=== PATIENT | female | born 1960 | race African-American/Black ===

== ENCOUNTER 2023-10-18 18:41 | Inpatient (IN) | payer OTHER ==
[2023-10-18 20:55] VITALS: BMI 29.2
[2023-10-19] MEDS ORDERED: IBUPROFEN 600 MG TABLET (FP) PO PRN ×2 (08:30→09:16)
[2023-10-19] MEDS ORDERED: NALOXONE HCL (KLOXXADO) 8 MG SPRAY NS PRN ×2 (08:30→09:16)
[2023-10-19] MEDS ORDERED: MAGNESIUM HYDROX 2400MG/30ML ORAL SUSPENSION 30 ML CUP PO PRN ×2 (08:30→09:16)
[2023-10-19] MEDS ORDERED: guaiFENesin 600 MG TABLET.ER (FP) PO PRN ×2 (08:30→09:16)
[2023-10-19] MEDS ORDERED: diazePAM 5 MG TABLET PO PRN ×2 (08:30→09:16)
[2023-10-19] MEDS ORDERED: IBUPROFEN 400 MG TABLET (FP) PO PRN ×2 (08:30→09:16)
[2023-10-19] MEDS ORDERED: DICYCLOMINE HCL 10 MG CAPSULE PO PRN ×2 (08:30→09:16)
[2023-10-19] MEDS ORDERED: BENZOCAINE/MENTHOL (CHLORASEPTIC ) LOZENGE MM PRN ×2 (08:30→09:16)
[2023-10-19] MEDS ORDERED: POLYETHYLENE GLYCOL (HEALTHYLAX) 3350 17 GM PACKET PO PRN ×2 (08:30→09:16)
[2023-10-19] MEDS ORDERED: BISMUTH SUBSALICYLATE 262 MG/15 ML BTL PO PRN ×2 (08:30→09:16)
[2023-10-19] MEDS ORDERED: BENZONATATE 200 MG CAPSULE PO PRN ×2 (08:30→09:16)
[2023-10-19] MEDS ORDERED: hydrOXYzine PAMOATE 25 MG CAPSULE (FP) PO PRN ×2 (08:30→09:16)
[2023-10-19] MEDS ORDERED: ACETAMINOPHEN 325 MG TABLET (FP) PO PRN ×2 (08:30→09:16)
[2023-10-19] MEDS ORDERED: METHOCARBAMOL 500 MG TABLET PO PRN ×2 (08:30→09:16)
[2023-10-19] MEDS ORDERED: MAG HYDROX/AL HYDROX/SIMETH 30 ML UNIT-DOSE CUP PO PRN ×2 (08:30→09:16)
[2023-10-19] MEDS ORDERED: NALOXONE HCL 0.4 MG/ML VIAL IM PRN ×2 (08:30→09:16)
[2023-10-19] MEDS ORDERED: LOPERAMIDE HCL 2 MG CAPSULE PO PRN ×2 (08:30→09:16)
[2023-10-19] MEDS ORDERED: ONDANSETRON *ODT* 4 MG TABLET SL PRN ×2 (08:30→09:16)
[2023-10-19] MEDS ORDERED: PRENATAL VITAMINS W/ FOLIC ACID TABLET (FP) PO SCH (10:00)
[2023-10-19] MEDS ORDERED: diazePAM 5 MG TABLET PO SCH (11:00)
[2023-10-19] MEDS: amLODIPine BESYLATE 2.5 MG TABLET (FP) PO SCH (11:29)
[2023-10-19] MEDS: PRENATAL VITAMINS W/ FOLIC ACID TABLET (FP) PO SCH (11:29)
[2023-10-19] MEDS: LOSARTAN POTASSIUM 25 MG TABLET PO SCH (11:30)
[2023-10-19] MEDS: diazePAM 5 MG TABLET PO SCH ×3 (11:31→22:18)
[2023-10-19 13:30] LABS: HEMATOCRIT 39.2 % (32.4-45.2); HEMOGLOBIN 12.7 GM/dL (10.7-15.3); MCH 28.5 pg (25.7-33.7); MCHC 32.4 g/dl (32.0-36.0); MEAN CELL VOLUME 88.1 fl (80-96); MEAN PLT VOLUME 9.3 fl (7.5-11.1); PLATELET COUNT 217 10^3/uL (134-434); RBC 4.45 M/mm3 (3.60-5.2); RDW 15.5 % (11.6-15.6); WHITE BLOOD COUNT 6.4 K/mm3 (4.0-10.0)
[2023-10-19 13:40] LABS: POTASSIUM 3.2 mmol/L (3.5-5.1)
[2023-10-19 13:46] LABS: ALBUMIN 3.9 g/dl (3.4-5.0); BLOOD UREA NITROGEN 20.9 mg/dL (7-18); CALCIUM 9.9 mg/dL (8.5-10.1)
[2023-10-19 13:50] LABS: CREATININE 1.6 mg/dL (0.55-1.3)
[2023-10-19 13:51] LABS: BILIRUBIN,TOTAL 0.3 mg/dL (0.2-1); TOT PROT 7.9 g/dl (6.4-8.2)
[2023-10-19] MEDS ORDERED: THIAMINE HCL 100 MG TABLET (FP) PO SCH (22:00)
[2023-10-19] MEDS ORDERED: MELATONIN 5 MG TABLETS PO SCH (22:00)
[2023-10-19] MEDS: MELATONIN 5 MG TABLETS PO SCH (22:18)
[2023-10-19] MEDS: COLLOIDAL OATMEAL 1 BAR EACH TP PRN (22:18)
[2023-10-19] MEDS: THIAMINE HCL 100 MG TABLET (FP) PO SCH (22:18)
[2023-10-20] MEDS: diazePAM 5 MG TABLET PO SCH ×4 (05:46→22:13)
[2023-10-20] MEDS: PRENATAL VITAMINS W/ FOLIC ACID TABLET (FP) PO SCH (10:10)
[2023-10-20] MEDS: amLODIPine BESYLATE 2.5 MG TABLET (FP) PO SCH (10:10)
[2023-10-20] MEDS: LOSARTAN POTASSIUM 25 MG TABLET PO SCH (10:10)
[2023-10-20] MEDS: THIAMINE HCL 100 MG TABLET (FP) PO SCH (22:13)
[2023-10-20] MEDS: MELATONIN 5 MG TABLETS PO SCH (22:14)
[2023-10-21] MEDS: diazePAM 5 MG TABLET PO SCH ×3 (05:50→22:20)
[2023-10-21] MEDS ORDERED: diazePAM 5 MG TABLET PO SCH (06:00)
[2023-10-21] MEDS: PRENATAL VITAMINS W/ FOLIC ACID TABLET (FP) PO SCH (10:33)
[2023-10-21] MEDS: LOSARTAN POTASSIUM 50 MG TABLET PO SCH (10:33)
[2023-10-21] MEDS: amLODIPine BESYLATE 2.5 MG TABLET (FP) PO SCH (10:38)
[2023-10-21 11:34] LABS: BLOOD UREA NITROGEN 15.8 mg/dL (7-18)
[2023-10-21 11:37] LABS: CREATININE 0.8 mg/dL (0.55-1.3)
[2023-10-21] MEDS: MELATONIN 5 MG TABLETS PO SCH (22:19)
[2023-10-21] MEDS: POTASSIUM CHLORIDE ORAL LIQUID 20 MEQ/15 ML PO SCH (22:19)
[2023-10-21] MEDS: THIAMINE HCL 100 MG TABLET (FP) PO SCH (22:20)
[2023-10-22] MEDS: diazePAM 5 MG TABLET PO SCH ×2 (05:51→17:42)
[2023-10-22] MEDS ORDERED: diazePAM 5 MG TABLET PO SCH (06:00)
[2023-10-22] MEDS: LOSARTAN POTASSIUM 50 MG TABLET PO SCH (09:34)
[2023-10-22] MEDS: PRENATAL VITAMINS W/ FOLIC ACID TABLET (FP) PO SCH (09:38)
[2023-10-22] MEDS: POTASSIUM CHLORIDE ORAL LIQUID 20 MEQ/15 ML PO SCH (09:38)
[2023-10-22] MEDS: amLODIPine BESYLATE 2.5 MG TABLET (FP) PO SCH (09:38)
[2023-10-22] MEDS ORDERED: MIRTAZAPINE 15 MG TABLET (FP) PO SCH (22:00)
[2023-10-22] MEDS: THIAMINE HCL 100 MG TABLET (FP) PO SCH (22:25)
[2023-10-22] MEDS: MELATONIN 5 MG TABLETS PO SCH (22:58)
[2023-10-22] MEDS: COLLOIDAL OATMEAL 1 BAR EACH TP PRN (23:11)
[2023-10-23] MEDS ORDERED: diazePAM 5 MG TABLET PO ONE ×2 (06:00)
[2023-10-23 07:00] VITALS: PULSE 85
[2023-10-23] MEDS: LOSARTAN POTASSIUM 50 MG TABLET PO SCH (09:19)
[2023-10-23] MEDS: amLODIPine BESYLATE 2.5 MG TABLET (FP) PO SCH (09:20)
[2023-10-23] MEDS: PRENATAL VITAMINS W/ FOLIC ACID TABLET (FP) PO SCH (09:20)
[2023-10-23 09:33] VITALS: BP 138/89; RESP 18; TEMP 97.3
[2023-10-23 12:45] LABS: POTASSIUM 4.2 mmol/L (3.5-5.1)
[2023-10-23 12:46] LABS: CALCIUM 9.5 mg/dL (8.5-10.1)
[2023-10-23 12:47] LABS: BLOOD UREA NITROGEN 17.6 mg/dL (7-18)
[2023-10-23 12:50] LABS: CREATININE 0.8 mg/dL (0.55-1.3)
== END 2023-10-23 09:50 | disposition home or self-care (01) | DRG 897 ==
LOC: YASAS 18:41 → Y3N 10-19 09:41
PROVIDERS: ADMIT Allergy & Immunology; ATTEND Surgery
PROC: HZ2ZZZZ Detoxification Services for Substance Abuse Treatment (ICD-10-PCS; principal; 2023-10-19)
DX: F10.230 Alcohol dependence with withdrawal, uncomplicated (principal); F17.210 Nicotine dependence, cigarettes, uncomplicated; F19.24 Other psychoactive substance dependence with psychoactive substance-induced mood disorder; F41.9 Anxiety disorder, unspecified; E87.6 Hypokalemia; I10 Essential (primary) hypertension; Z86.79 Personal history of other diseases of the circulatory system; Z28.310 Unvaccinated for COVID-19; Z28.9 Immunization not carried out for unspecified reason; Z88.0 Allergy status to penicillin
CPT/HCPCS: 36415; 80048; 80053; 80307; 82565; 84520; 85027; 86780; 87635; 87811

== ENCOUNTER 2023-11-06 21:38 | Inpatient (IN) | payer OTHER ==
[2023-11-06 22:05] VITALS: BMI 28.5
[2023-11-06] MEDS ORDERED: chlordiazePOXIDE HCL 25 MG CAPSULE PO PRN (22:42)
[2023-11-06] MEDS ORDERED: IBUPROFEN 600 MG TABLET (FP) PO PRN (22:50)
[2023-11-06] MEDS ORDERED: P-EPHED 60MG/TRIPROLIDI 2.5MG TABLET PO PRN (22:50)
[2023-11-06] MEDS ORDERED: LOPERAMIDE HCL 2 MG CAPSULE PO PRN (22:50)
[2023-11-06] MEDS ORDERED: guaiFENesin 600 MG TABLET.ER (FP) PO PRN (22:50)
[2023-11-06] MEDS ORDERED: MAGNESIUM HYDROX 2400MG/30ML ORAL SUSPENSION 30 ML CUP PO PRN (22:50)
[2023-11-06] MEDS ORDERED: BISMUTH SUBSALICYLATE 524 MG/30 ML PO PRN (22:50)
[2023-11-06] MEDS ORDERED: IBUPROFEN 400 MG TABLET (FP) PO PRN (22:50)
[2023-11-06] MEDS ORDERED: POLYETHYLENE GLYCOL (HEALTHYLAX) 3350 17 GM PACKET PO PRN (22:50)
[2023-11-06] MEDS ORDERED: ACETAMINOPHEN 325 MG TABLET (FP) PO PRN (22:50)
[2023-11-06] MEDS ORDERED: ONDANSETRON *ODT* 4 MG TABLET SL PRN (22:50)
[2023-11-06] MEDS ORDERED: MAG HYDROX/AL HYDROX/SIMETH 30 ML UNIT-DOSE CUP PO PRN (22:50)
[2023-11-06] MEDS ORDERED: BENZONATATE 200 MG CAPSULE PO PRN (22:50)
[2023-11-06] MEDS ORDERED: BENZOCAINE/MENTHOL (CHLORASEPTIC ) LOZENGE MM PRN (22:50)
[2023-11-06] MEDS ORDERED: METOPROLOL TARTRATE 25 MG TABLET (FP) PO ONE (22:54)
[2023-11-06] MEDS: chlordiazePOXIDE HCL 25 MG CAPSULE PO SCH (23:26)
[2023-11-07] MEDS: chlordiazePOXIDE HCL 25 MG CAPSULE PO SCH ×4 (05:55→22:05)
[2023-11-07] MEDS: LOSARTAN POTASSIUM 50 MG TABLET PO SCH (10:12)
[2023-11-07] MEDS: amLODIPine BESYLATE 2.5 MG TABLET (FP) PO SCH (10:13)
[2023-11-07] MEDS: PRENATAL VITAMINS W/ FOLIC ACID TABLET (FP) PO SCH (10:13)
[2023-11-07] MEDS: BRIMONIDINE TARTRATE 0.2% OPHTHALMIC 5 ML BOTTLE OU SCH (12:22)
[2023-11-07] MEDS: MIRTAZAPINE 15 MG TABLET (FP) PO SCH (22:05)
[2023-11-07] MEDS: THIAMINE HCL 100 MG TABLET (FP) PO SCH (22:05)
[2023-11-07] MEDS: MELATONIN 5 MG TABLETS PO SCH (22:05)
[2023-11-08] MEDS: chlordiazePOXIDE HCL 25 MG CAPSULE PO SCH ×4 (05:29→22:08)
[2023-11-08] MEDS: amLODIPine BESYLATE 2.5 MG TABLET (FP) PO SCH (10:13)
[2023-11-08] MEDS: LOSARTAN POTASSIUM 50 MG TABLET PO SCH (10:14)
[2023-11-08] MEDS: PRENATAL VITAMINS W/ FOLIC ACID TABLET (FP) PO SCH (10:14)
[2023-11-08] MEDS: BRIMONIDINE TARTRATE 0.2% OPHTHALMIC 5 ML BOTTLE OU SCH (10:14)
[2023-11-08] MEDS: MELATONIN 5 MG TABLETS PO SCH (22:08)
[2023-11-08] MEDS: THIAMINE HCL 100 MG TABLET (FP) PO SCH (22:08)
[2023-11-08] MEDS: MIRTAZAPINE 15 MG TABLET (FP) PO SCH (22:08)
[2023-11-09] MEDS ORDERED: chlordiazePOXIDE HCL 10 MG CAPSULE PO PRN
[2023-11-09] MEDS: chlordiazePOXIDE HCL 10 MG CAPSULE PO SCH ×4 (05:19→22:09)
[2023-11-09] MEDS: LOSARTAN POTASSIUM 50 MG TABLET PO SCH (10:12)
[2023-11-09] MEDS: amLODIPine BESYLATE 2.5 MG TABLET (FP) PO SCH (10:12)
[2023-11-09] MEDS: PRENATAL VITAMINS W/ FOLIC ACID TABLET (FP) PO SCH (10:12)
[2023-11-09] MEDS: BRIMONIDINE TARTRATE 0.2% OPHTHALMIC 5 ML BOTTLE OU SCH (10:15)
[2023-11-09 11:04] LABS: HEMATOCRIT 33.9 % (32.4-45.2); HEMOGLOBIN 10.8 GM/dL (10.7-15.3); MCH 29.3 pg (25.7-33.7); MCHC 31.9 g/dl (32.0-36.0); MEAN CELL VOLUME 91.7 fl (80-96); MEAN PLT VOLUME 8.7 fl (7.5-11.1); PLATELET COUNT 201 10^3/uL (134-434); WHITE BLOOD COUNT 5.5 K/mm3 (4.0-10.0)
[2023-11-09 11:29] LABS: CALCIUM 9.6 mg/dL (8.5-10.1)
[2023-11-09 11:30] LABS: ALBUMIN 2.9 g/dl (3.4-5.0); BLOOD UREA NITROGEN 15.1 mg/dL (7-18)
[2023-11-09 11:33] LABS: CREATININE 0.9 mg/dL (0.55-1.3)
[2023-11-09 11:34] LABS: BILIRUBIN,TOTAL 0.4 mg/dL (0.2-1)
[2023-11-09 11:35] LABS: TOT PROT 6.3 g/dl (6.4-8.2)
[2023-11-09] MEDS: THIAMINE HCL 100 MG TABLET (FP) PO SCH (22:08)
[2023-11-09] MEDS: MELATONIN 5 MG TABLETS PO SCH (22:09)
[2023-11-09] MEDS: MIRTAZAPINE 15 MG TABLET (FP) PO SCH (22:09)
[2023-11-10] MEDS: chlordiazePOXIDE HCL 10 MG CAPSULE PO SCH ×2 (05:46→16:58)
[2023-11-10] MEDS: amLODIPine BESYLATE 2.5 MG TABLET (FP) PO SCH (10:01)
[2023-11-10] MEDS: LOSARTAN POTASSIUM 50 MG TABLET PO SCH (10:01)
[2023-11-10] MEDS: BRIMONIDINE TARTRATE 0.2% OPHTHALMIC 5 ML BOTTLE OU SCH (10:01)
[2023-11-10] MEDS: PRENATAL VITAMINS W/ FOLIC ACID TABLET (FP) PO SCH (10:01)
[2023-11-10] MEDS: MELATONIN 5 MG TABLETS PO SCH (23:04)
[2023-11-10] MEDS: MIRTAZAPINE 15 MG TABLET (FP) PO SCH (23:04)
[2023-11-10] MEDS: THIAMINE HCL 100 MG TABLET (FP) PO SCH (23:04)
[2023-11-11] MEDS ORDERED: chlordiazePOXIDE HCL 10 MG CAPSULE PO ONE (05:00)
[2023-11-11 06:07] VITALS: PULSE 99
[2023-11-11 09:20] VITALS: BP 145/91; RESP 16; TEMP 97.6
[2023-11-11] MEDS: amLODIPine BESYLATE 2.5 MG TABLET (FP) PO SCH (09:28)
[2023-11-11] MEDS: PRENATAL VITAMINS W/ FOLIC ACID TABLET (FP) PO SCH (09:28)
[2023-11-11] MEDS: LOSARTAN POTASSIUM 50 MG TABLET PO SCH (09:28)
[2023-11-11] MEDS: BRIMONIDINE TARTRATE 0.2% OPHTHALMIC 5 ML BOTTLE OU SCH (09:31)
== END 2023-11-11 09:38 | disposition home or self-care (01) | DRG 897 ==
LOC: YASAS 21:38 → Y3N 11-07 01:50
PROVIDERS: ADMIT Allergy & Immunology; ATTEND Surgery
PROC: HZ2ZZZZ Detoxification Services for Substance Abuse Treatment (ICD-10-PCS; principal; 2023-11-07)
DX: F10.230 Alcohol dependence with withdrawal, uncomplicated (principal); F10.282 Alcohol dependence with alcohol-induced sleep disorder; F19.24 Other psychoactive substance dependence with psychoactive substance-induced mood disorder; I10 Essential (primary) hypertension; S62.606A Fracture of unspecified phalanx of right little finger, initial encounter for closed fracture; W19.XXXA Unspecified fall, initial encounter; Y93.89 Activity, other specified; Y92.89 Other specified places as the place of occurrence of the external cause; Y99.8 Other external cause status; Z88.0 Allergy status to penicillin
CPT/HCPCS: 36415; 73140-TC-RT-FY; 80053; 85027; 87635

== ENCOUNTER 2023-11-10 19:30 | Emergency (ER) | payer OTHER, BC ==
[2023-11-10 19:54] VITALS: BP 142/90; PULSE 90; RESP 18; TEMP 97.6; BMI 30.2
== END 2023-11-10 23:33 | disposition home or self-care (01) ==
LOC: JER 19:30 → JERFT 19:30
PROC: 2W3GX1Z Immobilization of Right Thumb using Splint (ICD-10-PCS; principal; 2023-11-10)
DX: S63.259A Unspecified dislocation of unspecified finger, initial encounter (principal); M79.641 Pain in right hand; M79.89 Other specified soft tissue disorders; W19.XXXA Unspecified fall, initial encounter; X50.9XXA Other and unspecified overexertion or strenuous movements or postures, initial encounter
CPT/HCPCS: 73130-TC-RT-FY; 99283-25

== ENCOUNTER 2024-05-30 16:34 | Inpatient (IN) | payer OTHER, BC ==
[2024-05-30 17:24] VITALS: BMI 31.6
[2024-05-30] MEDS ORDERED: BENZOCAINE/MENTHOL (CHLORASEPTIC ) LOZENGE MM PRN (19:56)
[2024-05-30] MEDS ORDERED: NALOXONE HCL 0.4 MG/ML VIAL IM PRN (19:56)
[2024-05-30] MEDS ORDERED: BENZONATATE 200 MG CAPSULE PO PRN (19:56)
[2024-05-30] MEDS ORDERED: DICYCLOMINE HCL 10 MG CAPSULE PO PRN (19:56)
[2024-05-30] MEDS ORDERED: IBUPROFEN 400 MG TABLET (FP) PO PRN (19:56)
[2024-05-30] MEDS ORDERED: LOPERAMIDE HCL 2 MG CAPSULE PO PRN (19:56)
[2024-05-30] MEDS ORDERED: POLYETHYLENE GLYCOL (HEALTHYLAX) 3350 17 GM PACKET PO PRN (19:56)
[2024-05-30] MEDS ORDERED: MAGNESIUM HYDROX 2400MG/30ML ORAL SUSPENSION 30 ML CUP PO PRN (19:56)
[2024-05-30] MEDS ORDERED: guaiFENesin 600 MG TABLET.ER (FP) PO PRN (19:56)
[2024-05-30] MEDS ORDERED: IBUPROFEN 600 MG TABLET (FP) PO PRN (19:56)
[2024-05-30] MEDS ORDERED: ONDANSETRON *ODT* 4 MG TABLET SL PRN (19:56)
[2024-05-30] MEDS ORDERED: MAG HYDROX/AL HYDROX/SIMETH 30 ML UNIT-DOSE CUP PO PRN (19:56)
[2024-05-30] MEDS ORDERED: BISMUTH SUBSALICYLATE 524 MG/30 ML PO PRN (19:56)
[2024-05-30] MEDS ORDERED: ACETAMINOPHEN 325 MG TABLET (FP) PO PRN (19:56)
[2024-05-30] MEDS ORDERED: NALOXONE (NARCAN) HCL 4 MG/0.1 ML SPRAY NS PRN (19:56)
[2024-05-30] MEDS: THIAMINE 100 MG TABLET PO SCH (22:23)
[2024-05-30] MEDS: MELATONIN 5 MG TABLETS PO SCH (22:23)
[2024-05-30] MEDS: diazePAM 5 MG TABLET PO SCH (22:24)
[2024-05-31] MEDS: PRENATAL VITAMINS W/ FOLIC ACID TABLET (FP) PO SCH (10:05)
[2024-05-31] MEDS: LOSARTAN POTASSIUM 50 MG TABLET PO SCH (10:05)
[2024-05-31] MEDS: amLODIPine BESYLATE 2.5 MG TABLET (FP) PO SCH (10:05)
[2024-05-31] MEDS: hydrOXYzine PAMOATE 25 MG CAPSULE (FP) PO PRN (17:13)
[2024-05-31] MEDS: MIRTAZAPINE 15 MG TABLET (FP) PO SCH (22:35)
[2024-05-31] MEDS: METHOCARBAMOL 500 MG TABLET PO PRN (22:36)
[2024-06-01] MEDS: diazePAM 5 MG TABLET PO SCH (06:17)
[2024-06-01] MEDS: cloNIDine HCL 0.1 MG TABLET PO PRN (13:17)
[2024-06-01] MEDS: diazePAM 5 MG TABLET PO PRN (17:39)
[2024-06-02] MEDS: diazePAM 5 MG TABLET PO SCH (05:49)
[2024-06-02 20:55] VITALS: RESP 16
[2024-06-03] MEDS: diazePAM 5 MG TABLET PO ONE (05:46)
[2024-06-03 09:11] VITALS: BP 140/97; PULSE 72; TEMP 97.7
== END 2024-06-03 09:51 | disposition home or self-care (01) | DRG 897 ==
LOC: YASAS 16:34 → Y6N 19:53
PROVIDERS: ADMIT Allergy & Immunology; ATTEND Surgery
PROC: HZ2ZZZZ Detoxification Services for Substance Abuse Treatment (ICD-10-PCS; principal; 2024-05-30)
DX: F10.230 Alcohol dependence with withdrawal, uncomplicated (principal); F10.282 Alcohol dependence with alcohol-induced sleep disorder; F41.9 Anxiety disorder, unspecified; F90.9 Attention-deficit hyperactivity disorder, unspecified type; I10 Essential (primary) hypertension; Z87.891 Personal history of nicotine dependence; Z88.0 Allergy status to penicillin
CPT/HCPCS: 80305; 80307

== ENCOUNTER 2024-07-22 17:09 | Inpatient (IN) | payer OTHER ==
[2024-07-22 17:42] VITALS: BMI 30.9
[2024-07-22] MEDS ORDERED: IBUPROFEN 600 MG TABLET (FP) PO PRN (18:57)
[2024-07-22] MEDS ORDERED: BISMUTH SUBSALICYLATE 524 MG/30 ML PO PRN (18:57)
[2024-07-22] MEDS ORDERED: NALOXONE HCL 0.4 MG/ML VIAL IM PRN (18:57)
[2024-07-22] MEDS ORDERED: guaiFENesin 600 MG TABLET.ER (FP) PO PRN (18:57)
[2024-07-22] MEDS ORDERED: MAGNESIUM HYDROX 2400MG/30ML ORAL SUSPENSION 30 ML CUP PO PRN (18:57)
[2024-07-22] MEDS ORDERED: POLYETHYLENE GLYCOL (HEALTHYLAX) 3350 17 GM PACKET PO PRN (18:57)
[2024-07-22] MEDS ORDERED: LOPERAMIDE HCL 2 MG CAPSULE PO PRN (18:57)
[2024-07-22] MEDS ORDERED: NALOXONE (NARCAN) HCL 4 MG/0.1 ML SPRAY NS PRN (18:57)
[2024-07-22] MEDS ORDERED: BENZOCAINE/MENTHOL (CHLORASEPTIC ) LOZENGE MM PRN (18:57)
[2024-07-22] MEDS ORDERED: BENZONATATE 200 MG CAPSULE PO PRN (18:57)
[2024-07-22] MEDS: METHOCARBAMOL 500 MG TABLET PO PRN (19:38)
[2024-07-22] MEDS ORDERED: METHOCARBAMOL 500 MG TABLET ONE (19:39)
[2024-07-22] MEDS: THIAMINE 100 MG TABLET PO SCH (22:11)
[2024-07-22] MEDS: MELATONIN 5 MG TABLETS PO SCH (22:11)
[2024-07-23] MEDS ORDERED: chlordiazePOXIDE HCL 25 MG CAPSULE PO PRN (04:30)
[2024-07-23] MEDS: chlordiazePOXIDE HCL 25 MG CAPSULE PO ONE (04:37)
[2024-07-23] MEDS: ONDANSETRON *ODT* 4 MG TABLET SL PRN (04:38)
[2024-07-23] MEDS: ACETAMINOPHEN 325 MG TABLET (FP) PO PRN ×2 (04:47→11:53)
[2024-07-23] MEDS: chlordiazePOXIDE HCL 25 MG CAPSULE PO SCH (10:13)
[2024-07-23] MEDS: LOSARTAN POTASSIUM 50 MG TABLET PO SCH (10:13)
[2024-07-23] MEDS: PRENATAL VITAMINS W/ FOLIC ACID TABLET (FP) PO SCH (10:13)
[2024-07-23] MEDS: amLODIPine BESYLATE 2.5 MG TABLET (FP) PO SCH (10:13)
[2024-07-23] MEDS: LIDOCAINE 4% PATCH TP SCH (11:53)
[2024-07-23] MEDS: MAG HYDROX/AL HYDROX/SIMETH 30 ML UNIT-DOSE CUP PO PRN (22:37)
[2024-07-23] MEDS: MIRTAZAPINE 15 MG TABLET (FP) PO SCH (22:38)
[2024-07-23] MEDS: LIDOCAINE PATCH REMOVAL MC SCH (23:06)
[2024-07-24] MEDS: chlordiazePOXIDE HCL 25 MG CAPSULE PO SCH (22:18)
[2024-07-24] MEDS: IBUPROFEN 400 MG TABLET (FP) PO PRN (22:19)
[2024-07-25] MEDS ORDERED: chlordiazePOXIDE HCL 25 MG CAPSULE PO SCH (05:00)
[2024-07-25] MEDS: amLODIPine BESYLATE 5 MG TABLET (FP) PO SCH (11:00)
[2024-07-25] MEDS: chlordiazePOXIDE HCL 10 MG CAPSULE PO SCH (22:42)
[2024-07-26] MEDS ORDERED: chlordiazePOXIDE HCL 10 MG CAPSULE PO SCH (05:00)
[2024-07-26 18:00] LABS: ALBUMIN 3.6 g/dl (3.4-5.0); BILIRUBIN,TOTAL 0.5 mg/dL (0.2-1); BLOOD UREA NITROGEN 11.3 mg/dL (7-18); CALCIUM 10.2 mg/dL (8.5-10.1); CREATININE 0.9 mg/dL (0.55-1.3); POTASSIUM 4.3 mmol/L (3.5-5.1); TOT PROT 7.4 g/dl (6.4-8.2)
[2024-07-26] MEDS: METOPROLOL TARTRATE 25 MG TABLET (FP) PO ONE (19:25)
[2024-07-26] MEDS: chlordiazePOXIDE HCL 10 MG CAPSULE PO PRN (22:54)
[2024-07-27] MEDS: chlordiazePOXIDE HCL 10 MG CAPSULE PO SCH (05:15)
[2024-07-28] MEDS: chlordiazePOXIDE HCL 10 MG CAPSULE PO ONE (05:28)
[2024-07-28 12:02] VITALS: BP 140/99; PULSE 86; RESP 18; TEMP 97.5
== END 2024-07-28 12:30 | disposition home or self-care (01) | DRG 897 ==
LOC: YASAS 17:09 → Y6N 18:43
PROVIDERS: ADMIT Allergy & Immunology; ATTEND Surgery
PROC: HZ2ZZZZ Detoxification Services for Substance Abuse Treatment (ICD-10-PCS; principal; 2024-07-22)
DX: F10.230 Alcohol dependence with withdrawal, uncomplicated (principal); F10.282 Alcohol dependence with alcohol-induced sleep disorder; F10.280 Alcohol dependence with alcohol-induced anxiety disorder; F41.9 Anxiety disorder, unspecified; I10 Essential (primary) hypertension; M54.50 Low back pain, unspecified; G89.29 Other chronic pain; R01.1 Cardiac murmur, unspecified; Z91.410 Personal history of adult physical and sexual abuse; Z63.8 Other specified problems related to primary support group; Z86.79 Personal history of other diseases of the circulatory system; Z88.0 Allergy status to penicillin
CPT/HCPCS: 36415; 80053; 80305; 80307; 86780; 93005; 93010; Q0162

== ENCOUNTER 2024-08-29 16:52 | Inpatient (IN) | payer BC, OTHER ==
[2024-08-29] MEDS ORDERED: POLYETHYLENE GLYCOL (HEALTHYLAX) 3350 17 GM PACKET PO PRN (20:26)
[2024-08-29] MEDS ORDERED: IBUPROFEN 400 MG TABLET (FP) PO PRN (20:26)
[2024-08-29] MEDS ORDERED: DICYCLOMINE HCL 10 MG CAPSULE PO PRN (20:26)
[2024-08-29] MEDS ORDERED: LOPERAMIDE HCL 2 MG CAPSULE PO PRN (20:26)
[2024-08-29] MEDS ORDERED: BENZONATATE 200 MG CAPSULE PO PRN (20:26)
[2024-08-29] MEDS ORDERED: BENZOCAINE/MENTHOL (CHLORASEPTIC ) LOZENGE MM PRN (20:26)
[2024-08-29] MEDS ORDERED: NALOXONE (NYS OPIOID OVERDOSE PROGRAM) 4 MG/0.1 ML SPRAY NS PRN (20:26)
[2024-08-29] MEDS ORDERED: guaiFENesin 600 MG TABLET.ER (FP) PO PRN (20:26)
[2024-08-29] MEDS ORDERED: NALOXONE (NARCAN) HCL 4 MG/0.1 ML SPRAY NS PRN (20:26)
[2024-08-29] MEDS ORDERED: ONDANSETRON *ODT* 4 MG TABLET SL PRN (20:26)
[2024-08-29] MEDS ORDERED: MAGNESIUM HYDROX 2400MG/30ML ORAL SUSPENSION 30 ML CUP PO PRN (20:26)
[2024-08-29] MEDS ORDERED: IBUPROFEN 600 MG TABLET (FP) PO PRN (20:26)
[2024-08-29] MEDS ORDERED: MAG HYDROX/AL HYDROX/SIMETH 30 ML UNIT-DOSE CUP PO PRN (20:26)
[2024-08-29] MEDS ORDERED: chlordiazePOXIDE HCL 25 MG CAPSULE ONE (21:38)
[2024-08-29] MEDS ORDERED: cloNIDine HCL 0.1 MG TABLET ONE (21:38)
[2024-08-29] MEDS: cloNIDine HCL 0.1 MG TABLET PO ONE (21:41)
[2024-08-29] MEDS: chlordiazePOXIDE HCL 25 MG CAPSULE PO PRN (21:43)
[2024-08-30] MEDS: MELATONIN 5 MG TABLETS PO SCH (01:41)
[2024-08-30] MEDS: chlordiazePOXIDE HCL 25 MG CAPSULE PO SCH (01:41)
[2024-08-30] MEDS: THIAMINE 100 MG TABLET PO SCH (01:41)
[2024-08-30] MEDS ORDERED: amLODIPine BESYLATE 5 MG TABLET (FP) PO SCH (10:00)
[2024-08-30] MEDS: LOSARTAN POTASSIUM 50 MG TABLET PO SCH (10:01)
[2024-08-30] MEDS: amLODIPine BESYLATE 5 MG TABLET (FP) PO SCH (10:02)
[2024-08-30] MEDS: PRENATAL VITAMINS W/ FOLIC ACID TABLET (FP) PO SCH (10:02)
[2024-08-30] MEDS: ACETAMINOPHEN 325 MG TABLET (FP) PO PRN (19:20)
[2024-08-30] MEDS: METHOCARBAMOL 500 MG TABLET PO PRN (21:39)
[2024-08-30] MEDS: MIRTAZAPINE 15 MG TABLET (FP) PO SCH (22:25)
[2024-08-31] MEDS: chlordiazePOXIDE HCL 25 MG CAPSULE PO SCH (05:35)
[2024-08-31] MEDS: BISMUTH SUBSALICYLATE 524 MG/30 ML PO PRN (18:26)
[2024-09-01] MEDS ORDERED: chlordiazePOXIDE HCL 10 MG CAPSULE PO PRN
[2024-09-01] MEDS: chlordiazePOXIDE HCL 10 MG CAPSULE PO SCH (05:49)
[2024-09-01] MEDS: hydrOXYzine PAMOATE 25 MG CAPSULE (FP) PO PRN (22:23)
[2024-09-02] MEDS: chlordiazePOXIDE HCL 10 MG CAPSULE PO SCH (05:59)
[2024-09-03] MEDS: chlordiazePOXIDE HCL 10 MG CAPSULE PO ONE (05:45)
[2024-09-03 07:23] VITALS: RESP 16
[2024-09-03 09:20] VITALS: BP 150/90; PULSE 94; TEMP 98
== END 2024-09-03 10:20 | disposition home or self-care (01) | DRG 897 ==
LOC: YASAS 16:52 → Y3N 22:49 → Y6N 08-31 13:33
PROVIDERS: ADMIT Allergy & Immunology; ATTEND Surgery
PROC: HZ2ZZZZ Detoxification Services for Substance Abuse Treatment (ICD-10-PCS; principal; 2024-08-29)
DX: F10.230 Alcohol dependence with withdrawal, uncomplicated (principal); F10.282 Alcohol dependence with alcohol-induced sleep disorder; F10.24 Alcohol dependence with alcohol-induced mood disorder; F19.24 Other psychoactive substance dependence with psychoactive substance-induced mood disorder; F32.A Depression, unspecified; I10 Essential (primary) hypertension; M54.50 Low back pain, unspecified; G89.29 Other chronic pain; R01.1 Cardiac murmur, unspecified; Z87.891 Personal history of nicotine dependence
CPT/HCPCS: 80305; 80307; 81025